=== PATIENT | male | born 1975 | race Caucasian/White ===

== ENCOUNTER 2017-05-10 01:30 | Inpatient (IN) | payer SELFPAY ==
[2017-05-10 01:41] LABS: % IMMATURE GRANULYOCYTES 0.4 % (0.0-1.1); ABSOLUTE IMMATURE GRANULOCYTES 0.05 10^3/uL (0.00-0.10); ADD DIFF? NO; ADD MORPH? NO; ADD SCAN? NO; ATYPICAL LYMPHOCYTE FLAG 0 (0-99); FRAGMENT RBC FLAG 40 (0-99); HEMATOCRIT 42.8 % (40.0-51.0); HEMOGLOBIN 14.3 g/dL (13.7-17.5); LEFT SHIFT FLG 0 (0-99); LIPEMIA HEMOLYSIS FLAG 80 (0-99); MEAN CELL HEMOGLOBIN 26.3 pg (27.9-34.1); MEAN CELL HEMOGLOBIN CONCENTR. 33.4 g/dL (32.4-36.7); MEAN CELL VOLUME 78.7 fL (81.5-99.8); PLATELET CLUMPS FLAG 10 (0-99); PLATELET COUNT 290 10^3/uL (150-400); RED BLOOD CELL COUNT 5.44 10^6/uL (4.40-6.38); RED CELL DISTRIBUTION WIDTH 18.6 % (11.5-15.2)
[2017-05-10] MEDS ORDERED: OLANZapine DISINTEGR 10 MG TAB PO ONE (01:47)
[2017-05-10 02:04] LABS: ALANINE AMINOTRANSFERASE 57 IU/L (21-72); ALBUMIN 4.7 g/dL (3.5-5.0); ALKALINE PHOSPHATASE 136 IU/L (38-126); ASPARTATE AMINOTRANSFERASE 24 IU/L (17-59); BILIRUBIN,TOTAL 0.4 mg/dL (0.1-1.4); CARBON DIOXIDE 22 mEq/l (22-31); CHLORIDE 95 mEq/L (97-110); CREATININE 0.6 mg/dL (0.7-1.3); ETHANOL SERUM < 10 mg/dL (0-10); GLOMERULAR FILTRATION RATE > 60; GLUCOSE 488 mg/dL (70-100); SODIUM 132 mEq/L (134-144); TOTAL PROTEIN 7.7 g/dL (6.3-8.2)
[2017-05-10 02:10] LABS: ANION GAP 17 mEq/L (8-16); POTASSIUM 5.3 mEq/L (3.5-5.2)
[2017-05-10] MEDS ORDERED: ACETAMINOPHEN 325 MG TAB ONE (02:27)
[2017-05-10] MEDS ORDERED: IBUPROFEN 200 MG TAB PO ONE ×2 (02:28→02:31)
[2017-05-10] MEDS ORDERED: ACETAMINOPHEN 325 MG TAB PO ONE (02:30)
[2017-05-10] MEDS ORDERED: IOPAMIDOL (ISOVUE-300) 100 ML BTL ONE (02:46)
[2017-05-10] MEDS ORDERED: oxyCODONE IR 5 MG TAB PO PRN (02:55)
[2017-05-10] MEDS ORDERED: ONDANSETRON DISINTEGRATING 4 MG TAB PO PRN (02:55)
[2017-05-10] MEDS ORDERED: ACETAMINOPHEN 325 MG TAB PO PRN (02:55)
[2017-05-10] MEDS ORDERED: NS 1,000 ML IV ONE (02:55)
[2017-05-10] MEDS ORDERED: ONDANSETRON 4 MG/2 ML VIAL IVP PRN (02:55)
--- NOTE | 2017-05-10 03:26 | PDGENHP ---
History and Physical - Chief Complaint Foreign object in urethra - History of Present Illness 41 yo M w/ schizophrenia and T1DM presents with a foreign object in his urethra. He was previously on monthly injectable depot Abilify. However, he has lost access to medication and has not had this since March 12. Before that he says he used to take Abilify 30 mg qHS. In the setting of this the voices in his head have been growing louder. Today, while on a bus from [place] to [place], the voices were telling him to hurt himself. As a result, he put a pen into his urethra. He says this has happened before, most recently about 6 months ago. He is having significant pain from this but is still passing urine. He has not had any insulin for over 2 weeks. He reports taking insulin glargine 70 units qHS and Novolog 8 units TID. He denies any other symptoms at this time. History Information - Allergies/Home Medication List Allergies/Adverse Reactions: No Known Allergies Allergy (Unverified 05/10/17 01:36) Home Medications: Abilify 05/10/17 [Last Taken Unknown] Lantus 100 UNITS/ML (*) 05/10/17 [Last Taken Unknown] novoLOG 05/10/17 [Last Taken Unknown] I have personally reviewed and updated: family history, medical history - Past Medical History diabetes type 1 Additional medical history: Schizophrenia - Family History Additional family history: Asked, denies - Social History Smoking Status: Current every day smoker Alcohol Use: None Drug Use: None Additional social history: Homeless, just arrived from [place] Review of Systems Review of Systems: ROS: 10pt was reviewed & negative except for what was stated in HPI & below Physical Exam Physical Exam: Temp Pulse Resp BP Pulse Ox 36.6 C 102 H 18 133/102 H 98 05/10/17 01:33 05/10/17 01:33 05/10/17 01:33 05/10/17 01:33 05/10/17 01:33 Constitutional: appears nourished, uncomfortable Eyes: PERRL, EOMI Ears, Nose, Mouth, Throat: moist mucous membranes, no oral mucosal ulcers Cardiovascular: regular rate and rhythym, no murmur, rub, or gallop Respiratory: no respiratory distress, clear to auscultation Gastrointestinal: normoactive bowel sounds, soft, non-tender abdomen Genitourinary: other (Foreign object palpable in proximal urethra) Skin: warm, normal color Musculoskeletal: full muscle strength, no muscle tenderness Neurologic: AAOx3, CN II-XII Intact Psychiatric: interacting appropriately, flat affect Lab Data & Imaging Review 05/10/17 01:25 05/10/17 01:25 WBC 11.93 10^3/uL (3.80-9.50) H 05/10/17 01:25 RBC 5.44 10^6/uL (4.40-6.38) 05/10/17 01:25 Hgb 14.3 g/dL (13.7-17.5) 05/10/17 01:25 Hct 42.8 % (40.0-51.0) 05/10/17 01:25 MCV 78.7 fL (81.5-99.8) L 05/10/17 01:25 MCH 26.3 pg (27.9-34.1) L 05/10/17 01:25 MCHC 33.4 g/dL (32.4-36.7) 05/10/17 01:25 RDW 18.6 % (11.5-15.2) H 05/10/17 01:25 Plt Count 290 10^3/uL (150-400) 05/10/17 01:25 MPV 11.0 fL (8.7-11.7) 05/10/17 01:25 Neut % (Auto) 59.4 % (39.3-74.2) 05/10/17 01:25 Lymph % (Auto) 29.8 % (15.0-45.0) 05/10/17 01:25 Republic % (Auto) 8.2 % (4.5-13.0) 05/10/17 01:25 Eos % (Auto) 1.6 % (0.6-7.6) 05/10/17 01:25 Baso % (Auto) 0.6 % (0.3-1.7) 05/10/17 01:25 Nucleat RBC Rel Count 0.0 % (0.0-0.2) 05/10/17 01:25 Absolute Neuts (auto) 7.08 10^3/uL (1.70-6.50) H 05/10/17 01:25 Absolute Lymphs (auto) 3.56 10^3/uL (1.00-3.00) H 05/10/17 01:25 Absolute Monos (auto) 0.98 10^3/uL (0.30-0.80) H 05/10/17 01:25 Absolute Eos (auto) 0.19 10^3/uL (0.03-0.40) 05/10/17 01:25 Absolute Basos (auto) 0.07 10^3/uL (0.02-0.10) 05/10/17 01:25 Absolute Nucleated RBC 0.00 10^3/uL (0-0.01) 05/10/17 01:25 Immature Gran % 0.4 % (0.0-1.1) 05/10/17 01:25 Immature Gran # 0.05 10^3/uL (0.00-0.10) 05/10/17 01:25 Sodium 132 mEq/L (134-144) L 05/10/17 01:25 Potassium 5.3 mEq/L (3.5-5.2) H 05/10/17 01:25 Chloride 95 mEq/L (97-110) L 05/10/17 01:25 Carbon Dioxide 22 mEq/l (22-31) 05/10/17 01:25 Anion Gap 17 mEq/L (8-16) H 05/10/17 01:25 BUN 19 mg/dL (7-23) 05/10/17 01:25 Creatinine 0.6 mg/dL (0.7-1.3) L 05/10/17 01:25 Estimated GFR > 60 05/10/17 01:25 Glucose 488 mg/dL (70-100) H 05/10/17 01:25 Calcium 10.0 mg/dL (8.5-10.4) 05/10/17 01:25 Total Bilirubin 0.4 mg/dL (0.1-1.4) 05/10/17 01:25 AST 24 IU/L (17-59) 05/10/17 01:25 ALT 57 IU/L (21-72) 05/10/17 01:25 Alkaline Phosphatase 136 IU/L (38-126) H 05/10/17 01:25 Total Protein 7.7 g/dL (6.3-8.2) 05/10/17 01:25 Albumin 4.7 g/dL (3.5-5.0) 05/10/17 01:25 Urine Opiates Screen NEGATIVE (NEGATIVE) 05/10/17 02:00 Urine Barbiturates NEGATIVE (NEGATIVE) 05/10/17 02:00 Ur Phencyclidine Scrn NEGATIVE (NEGATIVE) 05/10/17 02:00 Ur Amphetamine Screen NEGATIVE (NEGATIVE) 05/10/17 02:00 U Benzodiazepines Scrn NEGATIVE (NEGATIVE) 05/10/17 02:00 Urine Cocaine Screen NEGATIVE (NEGATIVE) 05/10/17 02:00 U Marijuana (THC) Screen NEGATIVE (NEGATIVE) 05/10/17 02:00 Ethyl Alcohol < 10 mg/dL (0-10) 05/10/17 01:25 Imaging Review: Pelvic XR w/ foreign object visible in urethra. CT read pending, but per radiologist foreign object confined to urethra. Assessment & Plan Assessment: 41 yo M w/ schizophrenia and T1DM presents with foreign object in his urethra and hyperglycemia. Plan: 1. Foreign body in urethra - Inserted as a result of psychiatric decompensation. He is still able to pass urine around it. Per radiology, foreign body contained to urethra without clear damage to surrounding structures. - Urology consulted, maintain NPO for likely surgery in the morning 2. Schizophrenia - Decompensated currently as a result of lack of medication. He has been on monthly, injectable depot Abilify. Prior to that he was on Abilify 30 mg PO qHS. - S/p 10 mg olanzapine x1 in ED - Admit to ICU on M1 hold - Will order Abilify 30 mg qHS for now pending psychiatric evaluation 3. T1DM, uncontrolled - Has not had insulin for several weeks. BG>400, AG 17, HCO3 22. Possibly mild DKA, but patient asymptomatic with normal bicarb, so will attempt to treat with NS and resumption of basal/bolus regimen for now. He reports regimen of glargine 70 u qHS + Novolog 8 u TID. - Will order insulin glargine 40 u qHS (first dose now); monitor and increase as indicated - SSI standard regimen - Monitor BMP Diet - NPO Code - Full Ppx - SCDs Dispo - Admit to ICU under M1 hold, observations status
[2017-05-10] MEDS ORDERED: INSULIN GLARGINE 100 UNITS/ML SYRINGE SC SCH ×2 (03:30→13:21)
[2017-05-10] MEDS ORDERED: D50W 25 GM/50 ML VIAL IVP PRN (03:38)
[2017-05-10] MEDS ORDERED: PARAMETERS MISC PRN (03:38)
[2017-05-10] MEDS: HYDROmorphone HCL/NS/PF 0.4 MG/2 ML SYR IVP PRN ×5 (03:57→21:28)
--- NOTE | 2017-05-10 04:27 | EDPHY ---
H & P Stated Complaint: pen up urethra, voices told him to Time Seen by Provider: 05/10/17 01:33 HPI/ROS: HPI The patient presents brought in by ambulance after placing a pen in his urethral meatus just prior to arrival. The patient has a history of schizophrenia, has missed his usual depot injection of antipsychotic, because he is homeless and has recently come to [place] because voices told him to get on a bus about 2 and half weeks ago. He was riding the bus today and then heard voices telling him to do this, thus he put a pen inside of his penis. He has done this multiple times before. He has required urologic procedures and an operation before to retrieve foreign bodies. He reports discomfort, denies any bleeding from the meatus. He is able to void. He has a history of diabetes on insulin, he has not had his insulin in several weeks because of his travel. He says he normally takes Lantus 70 units at night and NovoLog 8 units with meals. He denies any polyuria, polydipsia polyphagia. He says his blood glucose is normally run around 400. He is from in [place] and has been homeless for the last 1 and half years after being incarcerated for the previous 8. He denies any drug use. He was placed on an M1 hold by police. REVIEW OF SYSTEMS Constitutional: No fever, no chills. Eyes: No discharge. ENT: No sore throat. Cardiovascular: No chest pain, no palpitations. Respiratory: No cough, no shortness of breath. Gastrointestinal: No abdominal pain, no vomiting. Genitourinary: No hematuria. Musculoskeletal: No back pain. Skin: No rashes. Neurological: No headache. PMHx: Diabetes on insulin, schizophrenia, multiple abdominal operations, hernia with mesh repair Soc Hx: From [place], denies alcohol or drug use PHYSICAL General Appearance: Alert, no distress Eyes: Pupils equal and round no pallor or injection ENT, Mouth: Mucous membranes moist Respiratory: There are no retractions, lungs are clear to auscultation Cardiovascular: Regular rate and rhythm Gastrointestinal: Abdomen is soft and non-tender, no masses, bowel sounds normal : There is a palpable cord-like structure which begins at the base of his penis Neurological: A&O, moves all extremities Skin: Warm and dry, no rashes Musculoskeletal: Neck is supple non tender Extremities: symmetrical, full range of motion Psychiatric: Patient is oriented X 3, there is no agitation Source: Patient, EMS Exam Limitations: No limitations - Personal History Current Tetanus/Diphtheria Vaccine: Yes - Medical/Surgical History Hx Asthma: No Hx Chronic Respiratory Disease: No Hx Diabetes: Yes Hx Cardiac Disease: No Hx Renal Disease: No Hx Cirrhosis: No Hx Alcoholism: No Hx HIV/AIDS: No Hx Splenectomy or Spleen Trauma: No Other PMH: schizo, DM - Social History Smoking Status: Current every day smoker Constitutional: Initial Vital Signs Temperature (C) 36.6 C 05/10/17 01:33 Heart Rate 102 H 05/10/17 01:33 Respiratory Rate 18 05/10/17 01:33 Blood Pressure 133/102 H 05/10/17 01:33 O2 Sat (%) 98 05/10/17 01:33 O2 Delivery Mode Room Air Allergies/Adverse Reactions: No Known Allergies Allergy (Unverified 05/10/17 01:36) Home Medications: Medication Instructions Recorded Abilify 05/10/17 Lantus 100 UNITS/ML (*) 05/10/17 novoLOG 05/10/17 Medical Decision Making - Diagnostics Imaging Results: X-ray pelvis two views shows likely foreign body in the urethra, interpreted by me, radiology interpretation is pending. CT pelvis with contrast demonstrates foreign body in the bulbous urethra measuring 6 cm x 8 mm, there is no periurethral fluid or hematoma, no free fluid , bladder appears normal, discussed with Dr. Contreras of Radiology Imaging: Discussed imaging studies w/ call center representative Radiologist Differential Diagnosis: This is a 41-year-old male with schizophrenia, diabetes on insulin, homelessness , new to our area who presents after inserting a foreign body into his penis because of auditory hallucinations telling him to do so. This is a recurrent problem for the patient and he has had multiple similar episodes out of state requiring urologic intervention. He is currently hemodynamically stable with the discomfort only. In the emergency department, IV line was established an basic laboratory testing was checked. He had elevated blood glucose with an anion gap of 17 making DKA unlikely. He was given IV fluids and pain medication. X-ray was performed which did demonstrate foreign body, the location was not entirely clear. I consulted with Dr. Tod Gipson of Urology and we discussed the case. He does recommend CT scan of the pelvis for further evaluation. CT scan was performed which did demonstrate foreign body in the bulbous portion of the urethra. I consulted with the hospitalist, Dr. Choi who will admit the patient. We will keep the patient NPO. He will go to the ICU because he is on a mental health hold. - Data Points Laboratory Results: Laboratory Results 05/10/17 01:25 05/10/17 01:25 05/10/17 05/10/17 05/10/17 02:00 01:25 01:25 WBC 11.93 10^3/uL H 10^3/uL (3.80-9.50) RBC 5.44 10^6/uL 10^6/uL (4.40-6.38) Hgb 14.3 g/dL g/dL (13.7-17.5) Hct 42.8 % % (40.0-51.0) MCV 78.7 fL L fL (81.5-99.8) MCH 26.3 pg L pg (27.9-34.1) MCHC 33.4 g/dL g/dL (32.4-36.7) RDW 18.6 % H % (11.5-15.2) Plt Count 290 10^3/uL 10^3/uL (150-400) MPV 11.0 fL fL (8.7-11.7) Neut % (Auto) 59.4 % % (39.3-74.2) Lymph % (Auto) 29.8 % % (15.0-45.0) Leslie % (Auto) 8.2 % % (4.5-13.0) Eos % (Auto) 1.6 % % (0.6-7.6) Baso % (Auto) 0.6 % % (0.3-1.7) Nucleat RBC Rel Count 0.0 % % (0.0-0.2) Absolute Neuts (auto) 7.08 10^3/uL H 10^3/uL (1.70-6.50) Absolute Lymphs (auto) 3.56 10^3/uL H 10^3/uL (1.00-3.00) Absolute Monos (auto) 0.98 10^3/uL H 10^3/uL (0.30-0.80) Absolute Eos (auto) 0.19 10^3/uL 10^3/uL (0.03-0.40) Absolute Basos (auto) 0.07 10^3/uL 10^3/uL (0.02-0.10) Absolute Nucleated RBC 0.00 10^3/uL 10^3/uL (0-0.01) Immature Gran % 0.4 % % (0.0-1.1) Immature Gran # 0.05 10^3/uL 10^3/uL (0.00-0.10) Sodium 132 mEq/L L mEq/L (134-144) Potassium 5.3 mEq/L H mEq/L (3.5-5.2) Chloride 95 mEq/L L mEq/L (97-110) Carbon Dioxide 22 mEq/l mEq/l (22-31) Anion Gap 17 mEq/L H mEq/L (8-16) BUN 19 mg/dL mg/dL (7-23) Creatinine 0.6 mg/dL L mg/dL (0.7-1.3) Estimated GFR > 60 Glucose 488 mg/dL H mg/dL (70-100) Calcium 10.0 mg/dL mg/dL (8.5-10.4) Total Bilirubin 0.4 mg/dL mg/dL (0.1-1.4) AST 24 IU/L IU/L (17-59) ALT 57 IU/L IU/L (21-72) Alkaline Phosphatase 136 IU/L H IU/L (38-126) Total Protein 7.7 g/dL g/dL (6.3-8.2) Albumin 4.7 g/dL g/dL (3.5-5.0) Urine Opiates Screen NEGATIVE (NEGATIVE) Urine Barbiturates NEGATIVE (NEGATIVE) Ur Phencyclidine Scrn NEGATIVE (NEGATIVE) Ur Amphetamine Screen NEGATIVE (NEGATIVE) U Benzodiazepines Scrn NEGATIVE (NEGATIVE) Urine Cocaine Screen NEGATIVE (NEGATIVE) U Marijuana (THC) Screen NEGATIVE (NEGATIVE) Ethyl Alcohol < 10 mg/dL mg/dL (0-10) Medications Given: Hydromorphone/Sodium Chloride (Hydromorphone) 0.2 - 0.4 mg IVP Q4HRS PRN PRN Reason: Pain, Severe Unable to Take PO Stop: 05/20/17 02:54 Last Admin: 05/10/17 03:57 Dose: 0.4 mg Insulin Glargine (Lantus Syringe) 40 units SC HS STAR Stop: 11/06/17 03:29 Last Admin: 05/10/17 04:21 Dose: 40 units Insulin Human Lispro (Humalog Lispro) 0 unit SC TIDMEAL STAR PRN Reason: Protocol Stop: 11/06/17 07:59 Last Admin: 05/10/17 07:23 Dose: Not Given Ondansetron HCl (Zofran Odt) 4 mg PO Q4HRS PRN PRN Reason: Nausea/Vomiting, Use 1st Stop: 11/06/17 02:54 Last Admin: 05/10/17 03:56 Dose: 4 mg Oxycodone HCl (Oxycodone Ir) 5 - 10 mg PO Q3HRS PRN PRN Reason: Pain, Severe Able to Take PO Stop: 05/20/17 02:54 Last Admin: 05/10/17 03:56 Dose: 5 mg Discontinued Medications Acetaminophen (Tylenol) 650 mg PO EDNOW ONE Stop: 05/10/17 02:31 Last Admin: 05/10/17 02:32 Dose: 650 mg Sodium Chloride (Ns) 1,000 mls @ 250 mls/hr IV ONCE ONE Stop: 05/10/17 06:54 Last Admin: 05/10/17 03:58 Dose: 1,000 mls Ibuprofen (Motrin) 800 mg PO EDNOW ONE Stop: 05/10/17 02:32 Last Admin: 05/10/17 02:32 Dose: 800 mg Morphine Sulfate (Morphine) 4 mg IVP EDNOW ONE Stop: 05/10/17 02:32 Last Admin: 05/10/17 02:33 Dose: 4 mg Olanzapine (Zyprexa Zydis) 10 mg PO EDNOW ONE Stop: 05/10/17 01:48 Last Admin: 05/10/17 02:05 Dose: Not Given Departure - Departure Disposition: [facility] Clinical Impression: Acute psychosis Urethral foreign body Qualifiers: Encounter type: initial encounter Qualified Code(s): T19.0XXA - Foreign body in urethra, initial encounter Schizophrenia Qualifiers: Schizophrenia type: unspecified Qualified Code(s): F20.9 - Schizophrenia, unspecified Diabetes mellitus with hyperglycemia Qualifiers: Diabetes mellitus type: type 1 Qualified Code(s): E10.65 - Type 1 diabetes mellitus with hyperglycemia Condition: Fair
[2017-05-10] MEDS: INSULIN LISPRO 100 UNIT/ML SC SCH ×4 (07:23→17:41)
--- NOTE | 2017-05-10 11:25 | ASMTCMCOM ---
CM Note CM Note Notes: Patient admitted after sticking a pen in his urethra. Per chart, patient has IDDM and has been without Insulin for some time. He also has schizophrenia, also not recently managed with medications. Patient tells me that "the voices" told him to get on a bus and travel from [place] to [place]. He has never been here before. He has been living on the streets in [place] for the past few weeks and on the streets in [place] before that. He says he has not spoken to his family since he was 15 and says there is no one he wants me (or him) to call regarding his hospitalization. He says that when he is medicated, the voices are inaudible. When I ask him how he usually obtains his medications, he says "through some clinic or the hospital." He says he has no money, no camping gear, and no plan as to what he will do after hospitalization. "Back to the streets," he says. Plan is for patient to go to OR tomorrow AM. He's currently on an M1 hold and will require TLC evaluation when medically stable. Ideally, he will be able to transfer to [facility] inpatient psychiatric unit then. CM will follow. Date Signed: 05/10/2017 11:25 AM Electronically Signed By:Mae Charles RN
--- NOTE | 2017-05-10 13:24 | HOSPPROG ---
Hospitalist Progress Note Assessment/Plan: #Foreign body in urethra: evaluated by urology. Plan for cystoscomy tomorrow. Urinating #Schizophrenia: off Abilify x 3 weeks, bc could not afford. Restart. On M1 hold. No SI/HI now #Diabetes: glargine and SSI #DVT ppx: low-risk #Disp: warrants inpt procedure with uncontrolled schizo and requires urologic procedures Subjective: No SI/HI Objective: Vital Signs Temp Pulse Resp BP Pulse Ox 36.5 C 84 12 143/83 H 95 05/10/17 11:45 05/10/17 11:45 05/10/17 11:45 05/10/17 11:45 05/10/17 11:45 05/09/17 05/10/17 05/11/17 05:59 05:59 05:59 Intake Total 1000 Output Total 300 Balance 1000 -300 - Physical Exam Constitutional: no apparent distress Eyes: PERRL Ears, Nose, Mouth, Throat: moist mucous membranes Cardiovascular: regular rate and rhythym Respiratory: no respiratory distress Gastrointestinal: normoactive bowel sounds Genitourinary: no bladder fullness Skin: warm Musculoskeletal: full muscle strength Neurologic: AAOx3 Psychiatric: depressed ICD10 Worksheet Patient Problems: Problems Problem Status Onset Acute psychosis Acute Urethral foreign body Acute Schizophrenia Acute Diabetes mellitus with hyperglycemia Acute
[2017-05-10] MEDS ORDERED: NS 1,000 ML IV SCH (15:15)
[2017-05-10 15:18] LABS: HEMOGLOBIN A1C 12.8 % (4.0-6.0)
[2017-05-10 15:35] VITALS: RESP 16
[2017-05-10 15:52] LABS: ANION GAP 11 mEq/L (8-16); CALCIUM 9.1 mg/dL (8.5-10.4); CARBON DIOXIDE 24 mEq/l (22-31); CHLORIDE 103 mEq/L (97-110); CREATININE 0.5 mg/dL (0.7-1.3); GLOMERULAR FILTRATION RATE > 60; GLUCOSE 156 mg/dL (70-100); POTASSIUM 4.8 mEq/L (3.5-5.2); SODIUM 138 mEq/L (134-144)
--- NOTE | 2017-05-10 16:43 | SOAPPROG ---
SOAP Progress Note Assessment/Plan: Assessment: Anterior urethral foreign body - unable to remove at bedside. Pt. currently voiding sufficiently. Plan: Intraoperative cystoscopy & FB removal tomorrow in OR (time still TBD). Objective: Vital Signs Temp Pulse Resp BP Pulse Ox 36.7 C 83 16 111/66 93 05/10/17 15:34 05/10/17 15:34 05/10/17 15:34 05/10/17 15:34 05/10/17 15:34 Laboratory Results 05/10/17 15:25 05/09/17 05/10/17 05/11/17 05:59 05:59 05:59 Intake Total 1000 Output Total 300 Balance 1000 -300 ICD10 Worksheet Patient Problems: Problems Problem Status Onset Acute psychosis Acute Diabetes mellitus with hyperglycemia Acute Schizophrenia Acute Urethral foreign body Acute
[2017-05-10] MEDS: INSULIN GLARGINE 100 UNITS/ML SYRINGE SC SCH (21:09)
[2017-05-10] MEDS: ARIPiprazole 10 MG TAB PO SCH (21:28)
[2017-05-11] MEDS: HYDROmorphone HCL/NS/PF 0.4 MG/2 ML SYR IVP PRN ×4 (02:22→19:19)
[2017-05-11] MEDS: INSULIN LISPRO 100 UNIT/ML SC SCH ×4 (09:05→19:04)
--- NOTE | 2017-05-11 09:37 | HOSPPROG ---
Hospitalist Progress Note Assessment/Plan: #Foreign body in urethra: evaluated by urology. Plan for cystoscopy today #Schizophrenia: off Abilify x 3 weeks, bc could not afford. Restart. On M1 hold. No SI/HI now. Will need mental health eval once medically clear #Diabetes: glargine and SSI. Reduced dose with NPO (normally takes 70 units) #DVT ppx: low-risk #Disp: warrants inpt procedure with uncontrolled schizo and requires urologic procedures Subjective: mild pain in penis. Urinating Objective: Vital Signs Temp Pulse Resp BP Pulse Ox 36.3 C 69 16 118/71 91 L 05/11/17 07:32 05/11/17 07:32 05/11/17 07:32 05/11/17 07:32 05/11/17 07:32 Laboratory Results 05/10/17 15:25 05/10/17 05/11/17 05/12/17 05:59 05:59 05:59 Intake Total 1000 1553 Output Total 300 Balance 1000 1253 ICD10 Worksheet Patient Problems: Problems Problem Status Onset Acute psychosis Acute Diabetes mellitus with hyperglycemia Acute Schizophrenia Acute Urethral foreign body Acute
--- NOTE | 2017-05-11 09:48 | SOAPPROG ---
SOAP Progress Note Assessment/Plan: Assessment: Anterior urethral foreign body - unable to remove at bedside. Pt. currently voiding sufficiently. Plan: Intraoperative cystoscopy & FB removal scheduled for OR late this afternoon. Continue NPO until then. Objective: Vital Signs Temp Pulse Resp BP Pulse Ox 36.3 C 69 16 118/71 91 L 05/11/17 07:32 05/11/17 07:32 05/11/17 07:32 05/11/17 07:32 05/11/17 07:32 Laboratory Results 05/10/17 15:25 05/10/17 05/11/17 05/12/17 05:59 05:59 05:59 Intake Total 1000 1553 Output Total 300 Balance 1000 1253 ICD10 Worksheet Patient Problems: Problems Problem Status Onset Acute psychosis Acute Diabetes mellitus with hyperglycemia Acute Schizophrenia Acute Urethral foreign body Acute
--- NOTE | 2017-05-11 15:47 | PDIAF ---
- Diagnosis Diagnosis: Schizophrenia, DM 1 Code Status: Full Code - Medication Management Discharge Medications: Medications to Continue on Transfer ARIPIPRAZOLE [Abilify 30mg] 30 mg PO HS 05/10/17 [Last Taken 3 Weeks Ago ~] Insulin Aspart [novoLOG] 2 - 10 unit SC TIDMEAL PRN #0 05/11/17 [Last Taken 3 Weeks Ago ~04/19/17] Insulin Glargine [Lantus 100 UNITS/ML (*)] 50 units SC HS #0 05/11/17 [Last Taken 3 Weeks Ago ~04/19/17] Discharge Medications: Refer to the Discharge Home Medication list for PRN reason. - Orders Services needed: Registered Nurse Diet Recommendation: ADA 2200 consistent carb Diet Texture: Regular Texture Diet - Labs/Radiology BMP Date: 05/12/17 - Follow Up Care Current Providers and Referrals: NONE *PRIMARY CARE P,. [Primary Care Provider] - As per Instructions
--- NOTE | 2017-05-11 15:50 | ASMTCMCOM ---
CM Note CM Note Notes: TLC was notified patient is medically clear for psych evaluation. CM will follow. Date Signed: 05/11/2017 03:49 PM Electronically Signed By:Mary Whalen LCSW
[2017-05-11] MEDS ORDERED: levOFLOXACIN 500 MG/DEXTROSE 100 ML IV ONE (17:00)
[2017-05-11 19:41] VITALS: BP 137/85; PULSE 78; TEMP 98.1; O2SAT 97
--- NOTE | 2017-05-11 20:48 | GDS ---
[f rep st] DISCHARGE SUMMARY DISCHARGE DIAGNOSES: 1. Schizophrenia, uncontrolled. 2. Type 1 diabetes. 3. Urethral foreign body. HISTORY OF PRESENT ILLNESS: A 41-year-old male with schizophrenia and type 1 diabetes, who presented with a foreign body in his urethra. He had previously been on injectable Depo Abilify but lost access to medication and has not had this since March 12. Prior to that, he was taking Abilify 30 mg at bedtime. [place] was on [place] and voices were telling him to hurt himself. As a result, he put a pen into his urethra and this has happened before, most recently 6 months ago. At admission, he was having significant pain but was still passing urine. He has not been on insulin for 2 weeks, and reports taking 70 units of glargine and NovoLog 8 three times daily. Denies nausea, vomiting, fevers, chills, or sweats. HOSPITAL COURSE BY PROBLEM: 1. Foreign body in urethra: Was still able to pass urine. He was evaluated by Urology and planned for cystoscopy. However, patient did pass the pen on his own. So, no intervention warranted. 2. Uncontrolled schizophrenia: Has been off his medications for several weeks. He was previously on injectable Abilify, previously on 30 mg at bedtime before that. At this time, he is medically cleared and would benefit from evaluation by [facility] and Mental Health. He has been on M1 hold here. 3. Uncontrolled type 1 diabetes: Off insulin for several weeks. Had an anion gap on admission. This closed with treatment. Sugars have been controlled on 40 units during this stay. We will increase this to 50 and may need up titration. DISPOSITION: The patient is medically clear, stable for discharge to Behavioral Health. MEDICATIONS: Lantus 50 units subcu at bedtime (previously on 70 units and of may need up titration) aspart insulin sliding scale, Abilify 30 at bedtime. FOLLOWUP: His psychiatrist. /[id number]/MODL MTDD
[2017-05-11] MEDS: ARIPiprazole 10 MG TAB PO SCH (21:08)
[2017-05-11] MEDS: INSULIN GLARGINE 100 UNITS/ML SYRINGE SC SCH (21:09)
--- NOTE | 2017-05-11 21:11 | PDMN ---
Medical Necessity Medical necessity: Pt meets INPT criteria per MD as of 05/11/17 and [facility] (est. LOS >2 MN for ongoing eval/mgmt. of uncontrolled schizophrenia, uncontrolled type 1 diabetes, hx FB in urethra per MD).
== END 2017-05-11 23:57 | DRG 700 ==
LOC: F2N 03:33 → OBSVTOIN 05-11 15:20
PROVIDERS: ADMIT Student in an Organized Health Care Education/Training Program; ATTEND Student in an Organized Health Care Education/Training Program
DX: T19.0XXA Foreign body in urethra, initial encounter (principal); F20.9 Schizophrenia, unspecified; E10.65 Type 1 diabetes mellitus with hyperglycemia; X83.8XXA Intentional self-harm by other specified means, initial encounter; T38.3X6A Underdosing of insulin and oral hypoglycemic [antidiabetic] drugs, initial encounter; T43.596A Underdosing of other antipsychotics and neuroleptics, initial encounter; Z59.0 Homelessness; Z72.0 Tobacco use
CPT/HCPCS: 80305; 96374; G0378; G0480; J1170; J1815; J1956; Q9967

== ENCOUNTER 2017-05-12 00:13 | Inpatient (IN) | payer SELFPAY ==
[2017-05-12 01:04] VITALS: RESP 16; TEMP 97.1
[2017-05-12] MEDS ORDERED: D50W 25 GM/50 ML SYR IVP PRN (01:08)
[2017-05-12] MEDS ORDERED: MAGNESIUM HYDROXIDE 30 ML UDCUP PO PRN (01:11)
[2017-05-12] MEDS ORDERED: LORazepam 0.5 MG TAB PO PRN (01:11)
[2017-05-12] MEDS ORDERED: ACETAMINOPHEN 325 MG TAB PO PRN (01:11)
[2017-05-12] MEDS ORDERED: MAG HYDROX/AL HYDROX/SIMETH 30 ML UDCUP PO PRN (01:11)
[2017-05-12] MEDS ORDERED: ARIPiprazole 10 MG TAB PO PRN (01:12)
[2017-05-12] MEDS ORDERED: OLANZapine 5 MG TAB PO PRN (01:12)
[2017-05-12] MEDS ORDERED: INSULIN LISPRO 100 UNIT/ML SC SCH (08:00)
[2017-05-12] MEDS ORDERED: ARIPiprazole 5 MG TAB PO SCH (11:00)
[2017-05-12] MEDS ORDERED: CEPHALEXIN 500 MG CAP PO SCH (11:00)
[2017-05-12] MEDS: INSULIN LISPRO 100 UNIT/ML SC SCH ×2 (12:12→17:24)
[2017-05-12] MEDS: NICOTINE POLACRILEX 2 MG GUM B PRN ×5 (12:18→20:56)
--- NOTE | 2017-05-12 13:44 | SOAPPROG ---
SOAP Progress Note Assessment/Plan: Assessment: Diabetes mellitus type 2. Will increase Lantus to 60 U at bedtime and will initiate NovoLog 4 U before meals. Continue to monitor. It is likely that his reported outpatient regimen will be appropriate but will exercise caution to avoid hypoglycemia. Status post urethral foreign body insertion and spontaneous passing. Unclear indication for antibiotics. No dysuria or other symptoms of UTI. No urinalysis done in the hospital. He recent levofloxacin IV yesterday. Will DC cephalexin. Observed for symptoms. 05/12/17 13:41 Subjective: Follow-up on management of diabetes mellitus type 1 and on urethral foreign body. This patient was hospitalized 05/10/2018 has self inserted a foreign body in his urethra. He has diabetes mellitus type 1 and had not been taking insulin for approximately 3 weeks. He reports that he was taking insulin glargine 70 U at bedtime and NovoLog 8 U three times daily before meals. He was seen by Urology and scheduled for cystoscopy however he was able to pass the farm body without intervention. He denies pain, dysuria, urinary frequency, fevers or chills. Objective: Vital Signs Temp Pulse Resp BP Pulse Ox 36.2 C 77 16 126/72 H 96 05/12/17 01:03 05/12/17 01:03 05/12/17 01:03 05/12/17 01:03 05/12/17 01:03 Physical Exam - Physical Exam General Appearance: WD/WN, alert, no apparent distress Respiratory: normal breath sounds, No crackles, No rhonchi, No wheezing Cardiac/Chest: regular rate, rhythm, No edema Skin: normal color, warm/dry Neuro/Psych: no motor/sensory deficits, alert, normal mood/affect, oriented x 3 ICD10 Worksheet Patient Problems: Problems Problem Status Onset Acute psychosis Acute Diabetes mellitus with hyperglycemia Acute Schizophrenia Acute Urethral foreign body Acute
--- NOTE | 2017-05-12 18:55 | BAPA ---
[f rep st] ADMISSION PSYCHIATRIC ASSESSMENT DATE OF SERVICE: 05/12/2017 CHIEF COMPLAINT: "I put a foreign object in my urethra. I have voices that tell me to do something bad. I sometimes do it to sop them." HISTORY OF PRESENT ILLNESS: This is a 41-year-old, man with a 20-year history of mental il lness who recently arrived from [place]. The patient was seen in the ICU and placed on a mental he alth hold. He called [place] [employer] dispatch and informed them that he just stuck a ballpoint pen in his urethra. Patient said that he was tired of being homeless and the voices in his head were getting t o him. Patient also said he has put objects in his urethra in the past. The discharge summary from the [facility] ED was written by Nicolás Choi. He noted that, "The patient is a 41-year-old male with schizophrenia and type 1 diabetes who presented with a foreign body in his urethra. He had previously been on Abilify but lost access to [facility] and has not had this since March. Prior to that, he was taking Abilify 30 mg. He was on a bus from [place] to [place] and voices were telling him to hurt himself. As a result, he put a pin in his urethra. This has happened before, most recently 6 months ago. At admission, he was havi ng significant pain but was still passing urine. He has not been on insulin for 2 weeks. Denies jesica sea, vomiting, fevers, chills or sweats." According to Dr. Choi, the hospital course by problem was as follows: 1. "Foreign body in urethra. Was still able to pass urine. He was evaluated by Urology and planned for a cystoscopy. However, the patient did pass the pen on his own, so no intervention warranted.". 2. "Uncontrolled schizophrenia. He has been off his medications for several weeks. At this time, h e is medically cleared and would benefit from evaluation by [facility].". 3. "Uncontrolled type 1 diabetes. Off insulin for several weeks. He had an anion gap on admission. This closed with treatment. Sugars been controlled on 40 units during this stay. We will increase this to 50 units and may need to up titration.". The patient's information that he provided to the [facility] professional caster and to the ED physician are not entir harriett accurate, based upon what he told this MD who met with him on Monday05/12/2017 on the inpatient Behavioral Health Services Unit. He told [facility] professional caster that he had been hospitalized many times, ehsan t he had 3 previous suicide attempts, all by taking insulin. According to the [facility] note, "During one of these times, he woke up and called for help. Following the other 2 attempts, someone else called 911. The most recent 2 attempts were during the last 3 months while he lived in [place]. He has been hospitalized 3 times. The hospitalizations have lasted 5- 7 days. When this MD met with the patient, he was bright, cheerful. He showed no apparent signs of distress or sadness. He was not reporting having any auditory or visual hallucinations. He denied any sympto ms of psychosis. Based upon observation, there was no evidence of psychosis, mei, or depression. The patient denied having any thoughts, plans, or intents to harm himself or to kill himself or to hu rt anyone else. He said "I am not going to lie to you. I only do this (put foreign objects in his urethra) so I am n ot homeless." The patient says, "I know if I put things in my penis I will get at least 2 days in [facility]." Patient says that he has placed foreign bodies in his urethra "tons of times" in order to get admitted to the hospital. The patient denies any symptoms of psychosis. Says that he was not having command auditory hallucina tions. He only told the ED staff that so that "I could get admitted." He also denies any prior hist ory of suicide attempts. He says that he has never done anything other than put foreign bodies in hi s urethra to intentionally harm himself and he has never overdosed on his insulin. PAST PSYCHIATRIC HISTORY: The patient says that he left [place], [place], about 3 weeks ago, a nd he has been in [place] since then. What he failed to disclose to the emergency room physician or staff and did not disclose to the [facility] professional caster was that he had recently been hospitalized at the [facility] on and was discharged on Monday05/08/2017 with a prescriptio n for Abilify and Lantus insulin. He said he did not fill either prescription because he did not hav e the money and he did not go to the free clinic to get treatment. He did not follow up with the [facility] that was scheduled for him and instead he took the bus and came to [place]. Patient s tates that he did the same thing to get admitted to [facility] that he did when he went to the [facility] ED which was put foreign body in his urethra. The patient states that he does have a prior psychiatric history. He said he was first diagnosed wit h attention deficit hyperactivity disorder when he was 5 years old and that he took Ritalin for an un specified period of time. He said then when he was 15 or 16 years old he says that he started having auditory hallucinations. He says that he was diagnosed with bipolar disorder when he was a teenager and that he was started on Depakote when he was about 17 years old. He took the Depakote for 2 years and then he said that they later changed his diagnosis from bipolar disorder to schizophrenia and he was tried on numerous antipsychotic medications. He said Risperdal was one of them. He said he cannot remember the names of the other medications that he tried, but he says that Abilify has worked the best at stopping the auditory hallucinations. However, when the MD questioned him as to why he had been off his medications, he said that, "It doesn't really make a di fference whether I take the medications or not." MD was confused because the patient said that Abili fy helped stop the voices. He said, "Well, sometimes I have the voices and sometimes I don't and it doesn't really seem to matter if I take the medications or not." Patient also says that the voices "do not bother me." When MD questioned this, because the patient to ld the ED staff that he was having command auditory hallucinations to put objects in his urethra, he said "that's not really true. The voices don't tell me to hurt myself. I only do that so that I can get admitted to the hospital." He says the voices are "not that bad. Nothing that I can't handle." The patient denies symptoms of mei now or in the past. He also denies depression. He denies fee ling sad, helpless, hopeless. He denies feeling worthless or feeling that life is not worth living. He denies having any thoughts of ending his life. He denies any intent or plan to hurt himself or t o hurt anyone else. The patient does admit that when he was last taking Abilify, it was when he was in [place]. He rosy d he got his medications from the [facility]. He could not afford them and that was the reason that he stopped when he left [place]. He had previously been on 30 mg. He did not say anything about being on an injectable form of Abilify. The ED physician noted that he had been on Abilify Maintena in the past, but given the fact that the patient is an unreliable historian we will need further rufino ateral information to verify this. The patient states he also has not been taking his insulin becaus e he could not afford it. He said that he used to go to the free clinic in [place] and get his i nsulin on a daily basis, but says that since he has left [place] he does not get it. ALLERGIES: Patient says he has no known drug allergies. CURRENT MEDICATIONS: The patient is currently not taking any medications. As previously mentioned in the past, he has been on Abilify 30 mg p.o. daily. He told the ED physici an he had been on Abilify Maintena, but denies that today. He also says that he had been on Lantus 7 0 mg daily in the past. He was given 40 units in the ED. He also says that he has been on antihyper tensive medications but has not taken them in a long time. PAST MEDICAL HISTORY: Patient is a type 1 diabetic but noncompliant with medications. He also says that he has a history of hypertension but does not take medications. SURGICAL HISTORY: He said that he had a hernia repair in July of 2016. SOCIAL HISTORY: The patient states that he was born and raised in [place], that he has family that still live there, but says that he has not had any contact with them since he was 15 years old. He was removed from his parents custody when he was 15 and placed in a foster home. He says, "I don't w ant to talk about it." The patient was homeless in [place], [place], up until 3 weeks ago when he left and took a bus and came to [place] for no apparent reason. He could not explain why he dec ided to come to [place]. He said that he does not like staying in shelters and he has just been dylan ing on the street, although he said he did stay in shelters when he was in [place]. SUBSTANCE USE HISTORY: The patient says that he smokes marijuana "once in a while." He denies any a lcohol use. He denies use of any other illicit substances. His urine drug screen was negative for a ll drugs. FAMILY HISTORY: The patient says does not stay in touch with his family. He is not aware of any fam marielle history of mental illness or substance use disorders. ADMISSION LABS: The patient's labs were done in the ED. His white cell count was 11.93, which was e levated. His hemoglobin was 14.3, hematocrit 42.8, platelet count was 290. His sodium level was 138 , potassium was 4.8, chloride 103, anion gap was 11, BUN was 11, creatinine was 0.5, glucose was 156, calcium was 9.1, AST was 24, ALT was 57. Alkaline phosphatase was 136, total protein 7.7, albumin 4 .7. Urine tox screen was negative for all drugs of abuse. MENTAL STATUS EXAMINATION: This is a slightly overweight, healthy-appearing male. Interac naomi appropriately with the examiner. His affect was bright and cheerful. His mood he said was "good ." His thought processes were linear and goal directed. His thought content reveals no evidence of psychosis or mei. He denied any thoughts, plans, or intents to hurt himself. He currently denied any active thoughts of suicide. His intellect appears to be average, based upon fund [employer] an d vocabulary. His insight and judgment both appear to be poor, based on the fact that he put a pin u p his urethra in order to get admitted to the hospital. IMPRESSION: 1. Factitious disorder. 2. Malingering. 3. History of schizoaffective disorder. There are no signs or symptoms or evidence of this at the c urrent time. 4. Cannabis use disorder. Moderate. 5. Should be psychosocial stressors include homeless. Recently arrived in [place] from [place] . Recently discharged from the [facility] [place]. Noncompliant with medications. He is an i nsulin-dependent diabetic. Does not take his insulin. Also, lack of social support and lack of harpreet ncial means. Estrangement from his biological family. PLAN: 1. Admit patient to behavioral health services inpatient unit on an M1 hold. 2. Monitor closely for safety and on suicide precautions. 3. We will restart the patient on Abilify which, according to the patient's report, he was getting b etween 05/05 and 05/08. He was getting 30 mg of Abilify daily while he was at the [facility] [place], but has not taken the medicine since his discharge. So, we will put him back on 30 mg p.o. C onsider putting him on an injectable Maintena, but that medicine is quite expensive and not always on formulary with the [facility], so we will want to decide where he is going to be getting his followup care and since the patient was recently discharged and did not comply with his aftercare plan, this MD has strong reservations about whether or not the patient will actually follow through on our discharge recommendations that we will need to be discussed with him in detail prior to discharge. He is getting Lantus 60 units at h.s. and 8 units 3 times a day with meals. 4. Engage patient in individual, group, and milieu therapies. 5. Patient states that his main goal during this hospital stay is to, "get connected with housing. " He has spoken with the healthcare associate who has explained to him the system in [facility] for ac cessing homeless services. The patient says that he is willing to go to a [facility] [place] if he can get connected with the homeless senior living. 6. Estimated length of stay is 2-3 days. Anticipate discharge on Monday, given the fact that the pa shilpa is malingering, although he does have a psychiatric history but the patient remains an unreliab le historian. /[id number]/MODL
[2017-05-12] MEDS: ARIPiprazole 5 MG TAB PO SCH (20:52)
[2017-05-12] MEDS ORDERED: INSULIN GLARGINE 100 UNITS/ML SYRINGE SC SCH ×3 (21:00)
[2017-05-12] MEDS: INSULIN GLARGINE 100 UNITS/ML SYRINGE SC SCH (21:29)
[2017-05-13] MEDS: INSULIN LISPRO 100 UNIT/ML SC SCH ×3 (08:30→17:25)
[2017-05-13] MEDS: NICOTINE POLACRILEX 2 MG GUM B PRN ×4 (13:09→20:29)
--- NOTE | 2017-05-13 14:19 | SOAPPROG ---
SOAP Progress Note Assessment/Plan: Assessment: 41 yo homeless man who put pen into his urethra in order to get admitted to hospital b/c "I don't want to be homeless." He says he has done this "tons of time" in past to gain hospital admission. Plan: 05/13/17 14:16 1. No complaints, tolerating Abilify, no SE's. 2. Denies any psychotic sxs, no depression, no SI/HI. 3. [facility]. Subjective: Met with patient, reviewed chart and d/w staff. Patient presents pleasant, cheerful, cooperative. He denies any psychotic sxs, no depression, no manic sxs. He denies any thoughts, plan or intent to hurt himself or anyone else. He repeats what he told yesterday, that he just wants to go to one of the local churches and have a "place to sleep at night." Objective: Vital Signs Temp Pulse Resp BP Pulse Ox 36.2 C 77 16 126/72 H 96 05/12/17 01:03 05/12/17 01:03 05/12/17 01:03 05/12/17 01:03 05/12/17 01:03 MSE: Affect: Euthymic Mood: "Fine" TP: Linear, goal-directed TC: No SI/HI, no AH/VH Insight/Judgment: Fair - Time Spent With Patient Time Spent With Patient: 20" - Pending Discharge Pending Discharge Within 24 Hours: No Pending Discharge Within 48 Hours: No ICD10 Worksheet Patient Problems: Problems Problem Status Onset Malingering Acute Acute psychosis Acute Diabetes mellitus with hyperglycemia Acute Schizophrenia Acute Urethral foreign body Acute - ICD10 Problem Qualifiers (1) Malingering
[2017-05-13] MEDS ORDERED: TUBERCULIN (PPD) 5 TU/0.1 ML SYRINGE ID ONE (14:32)
[2017-05-13] MEDS: INSULIN GLARGINE 100 UNITS/ML SYRINGE SC SCH (20:51)
[2017-05-13] MEDS: ARIPiprazole 5 MG TAB PO SCH (20:52)
[2017-05-14] MEDS: INSULIN LISPRO 100 UNIT/ML SC SCH ×3 (08:32→17:18)
[2017-05-14] MEDS: NICOTINE POLACRILEX 2 MG GUM B PRN ×6 (10:53→20:51)
[2017-05-14 12:32] VITALS: BP 135/86; PULSE 98; O2SAT 93
--- NOTE | 2017-05-14 13:30 | SOAPPROG ---
SOAP Progress Note Assessment/Plan: Assessment: 41 yo homeless man who put pen into his urethra in order to get admitted to hospital b/c "I don't want to be homeless." He says he has done this "tons of time" in past to gain hospital admission. Plan: 05/13/17 14:16 1. No complaints, tolerating Abilify, no SE's. 2. Denies any psychotic sxs, no depression, no SI/HI. 3. [facility] 05/14/17 13:27 1. BS range from 204-310 2. Patient off SP1 3. No complaints about meds 4. D/C to [facility] Subjective: Met with patient, reviewed chart and d/w staff. Patient says he's "the same" as yesterday. He was taken off suicide precautions and has privilege to listen to radio in his room. He says this makes him "feel better." He denies depression, psychotic sxs, and denies any thoughts, plan or intent to harm himself or anyone else. Objective: Vital Signs Temp Pulse Resp BP Pulse Ox 36.2 C 98 16 135/86 H 93 05/12/17 01:03 05/14/17 12:32 05/14/17 12:32 05/14/17 12:32 05/14/17 12:32 MSE: Affect: Euthymic Mood: "Good" TP: Linear TC: Denies any SI/HI, no AH/VH Insight/Judgment: Fair - Time Spent With Patient Time Spent With Patient: 15" - Pending Discharge Pending Discharge Within 24 Hours: No Pending Discharge Within 48 Hours: No ICD10 Worksheet Patient Problems: Problems Problem Status Onset Malingering Acute Acute psychosis Acute Diabetes mellitus with hyperglycemia Acute Schizophrenia Acute Urethral foreign body Acute - ICD10 Problem Qualifiers (1) Malingering
[2017-05-14] MEDS: ARIPiprazole 5 MG TAB PO SCH (20:49)
[2017-05-14] MEDS: INSULIN GLARGINE 100 UNITS/ML SYRINGE SC SCH (20:51)
[2017-05-15] MEDS: INSULIN LISPRO 100 UNIT/ML SC SCH ×2 (08:34→12:20)
[2017-05-15] MEDS: NICOTINE POLACRILEX 2 MG GUM B PRN (08:36)
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
[2017-05-15] MEDS ORDERED: ARIPiprazole 10 MG TAB PO SCH (21:00)
== END 2017-05-15 12:15 | disposition home or self-care (01) | DRG 885 ==
LOC: BBEH 00:13
PROVIDERS: ADMIT Psychiatry & Neurology Behavioral Neurology & Neuropsychiatry; ATTEND Psychiatry & Neurology Behavioral Neurology & Neuropsychiatry
DX: F20.9 Schizophrenia, unspecified (principal); F68.11 Factitious disorder imposed on self, with predominantly psychological signs and symptoms; T19.0XXA Foreign body in urethra, initial encounter; Z59.0 Homelessness; E10.9 Type 1 diabetes mellitus without complications; F12.90 Cannabis use, unspecified, uncomplicated; Z91.14 Patient's other noncompliance with medication regimen
CPT/HCPCS: J1815

== ENCOUNTER 2017-12-08 00:31 | Emergency (ER) | payer MEDICAID ==
[2017-12-08 01:14] LABS: PLATELET COUNT 203 10^3/uL (150-400)
--- NOTE | 2017-12-08 01:30 | EDPHY ---
H & P Stated Complaint: SI-FB in penis Time Seen by Provider: 12/08/17 00:37 HPI/ROS: Chief Complaint: Acute psychosis, suicidal, foreign body penis HPI: 42-year-old male with a history of schizophrenia and type 1 diabetes. He has been off his medications for a couple of weeks. He has been increasingly suicidal psychotic this morning and purposely placed approximately 5 in stick into is urethra and push it is far as he could. He has a history of doing this multiple times in the past and states that he has had to have it removed about 40 times. He says he has recently seen in the hospital in [place] and was given IV fluids and insulin and discharged. He is complaining of pain in his urethra. Denies fevers or chills. No nausea or vomiting. No head injuries or falls. ROS: 10 point Review of Systems is negative except as noted in the HPI. PMH: Schizophrenia, type 1 diabetes, hypertension, schizophrenia Social History: No smoking, no alcohol, no recreational drug use Family History: non-contributory Physical Exam: Gen: Awake, Alert, No Distress HEENT: Nose: no rhinorrhea Eyes: PERRLA, EOMI Mouth: Moist mucosa Neck: Supple, no JVD Chest: nontender, lungs clear to auscultation Heart: S1, S2 normal, no murmur Abd: Soft, patient has a palpable seroma and his right abdomen which she says is chronic, no guarding Genital: Patient has blood at his urethral meatus. There is a palpable likely intra urethral foreign body at the base of his penis. Back: no CVA tenderness, no midline tenderness Ext: no edema, non-tender Skin: no rash Neuro: CN II-XII intact, Sensation grossly intact, Strength 5/5 in bilateral upper and lower extremities - Personal History Current Tetanus Diphtheria and Acellular Pertussis (TDAP): Yes - Medical/Surgical History Hx Asthma: No Hx Chronic Respiratory Disease: No Hx Diabetes: Yes Hx Cardiac Disease: No Hx Renal Disease: No Hx Cirrhosis: No Hx Alcoholism: No Hx HIV/AIDS: No Hx Splenectomy or Spleen Trauma: No Other PMH: schizo, DM - Social History Smoking Status: Heavy smoker Constitutional: Initial Vital Signs Temperature (C) 36.6 C 12/08/17 00:36 Heart Rate 90 12/08/17 00:36 Respiratory Rate 16 12/08/17 00:36 Blood Pressure 141/104 H 12/08/17 00:36 O2 Sat (%) 96 12/08/17 00:36 O2 Delivery Mode Room Air Allergies/Adverse Reactions: No Known Allergies Allergy (Unverified 12/08/17 00:34) Home Medications: Medication Instructions Recorded Abilify 12/08/17 Lantus 12/08/17 Lisinopril 12/08/17 Pentasa 500 mg 12/08/17 novoLOG 12/08/17 Medical Decision Making - Diagnostics Imaging Results: Pelvis x-ray, unable to adequately visualize or rule out a foreign body in urethra. Imaging: I viewed and interpreted images myself ED Course/Re-evaluation: Laboratory his results noted. Patient has a blood sugar of 617 but his CO2 is 22 so he is not in DKA. I I am unable to visualize a foreign body on his plain x-ray. I have ordered a CT scan of his pelvis. I have ordered a L normal saline and 10 units of insulin subcutaneously. He is passing clear urine here. CT scan of the abdomen pelvis shows a 4.5 cm x 5 mm foreign body in the bulbous of his urethra. Unfortunately we do not have any inpatient beds available. I have discussed with Dr. Stubbs, hospitalist at [facility]. She is accepting the patient in transfer. Patient will remain on his mental health hold. - Data Points Laboratory Results: Laboratory Results 12/08/17 01:00 12/08/17 01:00 12/08/17 12/08/17 12/08/17 01:36 01:02 01:00 WBC RBC Hgb POC Hgb 14.3 gm/dL gm/dL (13.7-17.5) Hct POC Hct 42 % % (40-51) MCV MCH MCHC RDW Plt Count MPV Neut % (Auto) Lymph % (Auto) [place] % (Auto) Eos % (Auto) Baso % (Auto) Nucleat RBC Rel Count Absolute Neuts (auto) Absolute Lymphs (auto) Absolute Monos (auto) Absolute Eos (auto) Absolute Basos (auto) Absolute Nucleated RBC Immature Gran % Immature Gran # Puncture Site NONE GIVEN VBG pH 7.36 (7.31-7.42) VBG HCO3 22 mEQ/L mEQ/L (22-26) VBG Total CO2 23 mEq/L mEq/L (21-27) VBG O2 Saturation 99 % H % (65-75) VBG Base Excess -2.6 mEq/L L mEq/L (-2.5-2.5) Mixed VBG pCO2 40 mmHg mmHg (40-44) Mixed VBG pO2 129 mmHG H mmHG (35-40) POC Sodium 134 mEq/L L mEq/L (135-145) Sodium 136 mEq/L mEq/L (135-145) POC Potassium 4.3 mEq/L mEq/L (3.3-5.0) Potassium 4.6 mEq/L mEq/L (3.3-5.0) POC Chloride 98 mEq/L mEq/L (97-110) Chloride 101 mEq/L mEq/L (97-110) Carbon Dioxide 22 mEq/l mEq/l (22-31) Anion Gap 13 mEq/L mEq/L (8-16) POC BUN 10 mg/dL mg/dL (7-23) BUN 11 mg/dL mg/dL (7-23) Creatinine 0.7 mg/dL mg/dL (0.7-1.3) POC Creatinine 0.7 mg/dL mg/dL (0.7-1.3) Estimated GFR > 60 Glucose 613 mg/dL H* mg/dL (70-100) POC Glucose 659 mg/dL H* mg/dL (70-100) Calcium 9.2 mg/dL mg/dL (8.5-10.4) 12/08/17 01:00 WBC 6.50 10^3/uL 10^3/uL (3.80-9.50) RBC 4.58 10^6/uL 10^6/uL (4.40-6.38) Hgb 13.4 g/dL L g/dL (13.7-17.5) POC Hgb Hct 39.0 % L % (40.0-51.0) POC Hct MCV 85.2 fL fL (81.5-99.8) MCH 29.3 pg pg (27.9-34.1) MCHC 34.4 g/dL g/dL (32.4-36.7) RDW 13.2 % % (11.5-15.2) Plt Count 203 10^3/uL 10^3/uL (150-400) MPV 13.0 fL H fL (8.7-11.7) Neut % (Auto) 62.3 % % (39.3-74.2) Lymph % (Auto) 26.6 % % (15.0-45.0) [place] % (Auto) 7.5 % % (4.5-13.0) Eos % (Auto) 2.8 % % (0.6-7.6) Baso % (Auto) 0.6 % % (0.3-1.7) Nucleat RBC Rel Count 0.0 % % (0.0-0.2) Absolute Neuts (auto) 4.05 10^3/uL 10^3/uL (1.70-6.50) Absolute Lymphs (auto) 1.73 10^3/uL 10^3/uL (1.00-3.00) Absolute Monos (auto) 0.49 10^3/uL 10^3/uL (0.30-0.80) Absolute Eos (auto) 0.18 10^3/uL 10^3/uL (0.03-0.40) Absolute Basos (auto) 0.04 10^3/uL 10^3/uL (0.02-0.10) Absolute Nucleated RBC 0.00 10^3/uL 10^3/uL (0-0.01) Immature Gran % 0.2 % % (0.0-1.1) Immature Gran # 0.01 10^3/uL 10^3/uL (0.00-0.10) Puncture Site VBG pH VBG HCO3 VBG Total CO2 VBG O2 Saturation VBG Base Excess Mixed VBG pCO2 Mixed VBG pO2 POC Sodium Sodium POC Potassium Potassium POC Chloride Chloride Carbon Dioxide Anion Gap POC BUN BUN Creatinine POC Creatinine Estimated GFR Glucose POC Glucose Calcium Medications Given: Discontinued Medications Sodium Chloride (Ns) 1,000 mls @ 0 mls/hr IV ONCE ONE; Wide Open PRN Reason: Protocol Stop: 12/08/17 01:37 Last Admin: 12/08/17 01:50 Dose: 1,000 mls Insulin Human Regular (Humulin R) 10 unit SC EDNOW ONE Stop: 12/08/17 01:37 Last Admin: 12/08/17 01:54 Dose: 10 units Point of Care Test Results: Chemistry 12/08/17 01:02 POC Sodium 134 mEq/L L mEq/L (135-145) POC Potassium 4.3 mEq/L mEq/L (3.3-5.0) POC Chloride 98 mEq/L mEq/L (97-110) POC BUN 10 mg/dL mg/dL (7-23) POC Creatinine 0.7 mg/dL mg/dL (0.7-1.3) POC Glucose 659 mg/dL H* mg/dL (70-100) ISTAT H&H 12/08/17 01:02 POC Hgb 14.3 gm/dL gm/dL (13.7-17.5) POC Hct 42 % % (40-51) Departure - Departure Disposition: Acute Care Hospital Not [facility] Clinical Impression: Suicidal ideation, Acute psychosis, Diabetes mellitus with hyperglycemia, Urethral foreign body, Schizophrenia Condition: Fair Referrals: NONE *PRIMARY CARE P,. [Primary Care Provider] - As per Instructions
[2017-12-08] MEDS ORDERED: INSULIN REGULAR HUMAN 100 UNIT/ML UNIT SC ONE (01:36)
[2017-12-08] MEDS ORDERED: NS 1,000 ML IV ONE (01:36)
[2017-12-08 04:08] VITALS: BP 124/94
== END 2017-12-08 04:28 | disposition short-term general hospital (02) ==
LOC: EDUNIT#
DX: T19.0XXA Foreign body in urethra, initial encounter (principal); F23 Brief psychotic disorder; I10 Essential (primary) hypertension; E10.9 Type 1 diabetes mellitus without complications; F17.200 Nicotine dependence, unspecified, uncomplicated; E86.9 Volume depletion, unspecified; X83.8XXA Intentional self-harm by other specified means, initial encounter; Y99.8 Other external cause status; Y93.89 Activity, other specified
CPT/HCPCS: 82435-PO; 82565-PO; 82947-PO; 82947-QW; 84132-PO; 84295-PO; 84520-PO; 85014-PO; J1815

== ENCOUNTER 2017-12-15 00:19 | Inpatient (IN) | payer MEDICAID ==
[2017-12-15] MEDS ORDERED: D50W 25 GM/50 ML SYR IVP ONE ×3 (00:26→02:06)
[2017-12-15] MEDS ORDERED: NS 1,000 ML IV ONE (00:27)
--- NOTE | 2017-12-15 00:43 | EDPHY ---
H & P Stated Complaint: INSULIN OD Time Seen by Provider: 12/15/17 00:24 HPI/ROS: HPI The patient presents with overdose of his insulin just prior to arrival, brought in by ambulance. The patient has a history of type 1 diabetes as well as schizophrenia. He was outside at the bus stop and at approximately 11:45 p.m., over a period of 5 min, he injected NovoLog 15 syringes, each with 20 units of NovoLog in them into his abdomen. He says he was doing this in an effort to hurt himself though does not feel suicidal. He says that he is off of his psychiatric medications and he feels this is what caused him to act this way because voices are telling him to hurt himself. Once a friend noticed that he had taken all of this insulin he was given 4 cans of Mountain Dew which he drink in rapid succession. Per paramedics, glucose in the field was 516. They have not administered any treatments. The patient says he recently overdose on Lantus as well. He was seen in our emergency department on December 08 after placing a pen into his urethra requiring urologic intervention to remove.. REVIEW OF SYSTEMS Constitutional: No fever, no chills. Eyes: No discharge. ENT: No sore throat. Cardiovascular: No chest pain, no palpitations. Respiratory: No cough, no shortness of breath. Gastrointestinal: No abdominal pain, no vomiting. Genitourinary: No hematuria. Musculoskeletal: No back pain. Skin: No rashes. Neurological: No headache. PMHx: Type 1 diabetes on insulin, schizophrenia Soc Hx: Homeless, denies drug and alcohol use PHYSICAL General Appearance: Alert, no distress Eyes: Pupils equal and round no pallor or injection ENT, Mouth: Mucous membranes moist Respiratory: There are no retractions, lungs are clear to auscultation Cardiovascular: Regular rate and rhythm Gastrointestinal: Abdomen is soft and non-tender, no masses, bowel sounds normal Neurological: A&O, moves all extremities Skin: Warm and dry, no rashes Musculoskeletal: Neck is supple non tender Extremities: symmetrical, full range of motion Psychiatric: Patient is oriented X 3, there is no agitation Source: Patient, EMS Exam Limitations: No limitations - Personal History Current Tetanus Diphtheria and Acellular Pertussis (TDAP): Unsure - Medical/Surgical History Hx Asthma: No Hx Chronic Respiratory Disease: No Hx Diabetes: Yes Hx Cardiac Disease: No Hx Renal Disease: No Hx Cirrhosis: No Hx Alcoholism: No Hx HIV/AIDS: No Hx Splenectomy or Spleen Trauma: No Other PMH: schizo, DM I, HERNIA REPAIR - Social History Smoking Status: Heavy smoker Constitutional: Initial Vital Signs Temperature (C) 36.8 C 12/15/17 00:20 Heart Rate 95 12/15/17 00:20 Respiratory Rate 16 12/15/17 00:20 Blood Pressure 171/110 H 12/15/17 00:20 O2 Sat (%) 96 12/15/17 00:20 O2 Delivery Mode Room Air Allergies/Adverse Reactions: No Known Allergies Allergy (Verified 12/15/17 00:29) Home Medications: Medication Instructions Recorded ARIPiprazole [Abilify 10 mg (*)] 30 mg PO DAILY 12/08/17 Insulin Aspart [novoLOG] 15 unit SC TIDMEAL 12/08/17 Insulin Glargine [Lantus 100 70 units SC HS 12/08/17 UNITS/ML (*)] Lisinopril [Zestril 20 mg (*)] 20 mg PO DAILY 12/08/17 Mesalamine [Pentasa] 2,000 mg PO TIDMEAL 12/08/17 Cephalexin [Keflex (*)] 500 mg PO BID 12/15/17 Medical Decision Making Differential Diagnosis: 42-year-old man with schizophrenia, type 1 diabetes, homelessness, off of his psych medications presents after injecting total of 750 units of NovoLog at 11: 45 p.m. Tonight in active self-harm. He did drink a large glucose load after this. His blood glucose in the field was 516. He is placed on an M1 hold by the police. Labs were checked in the emergency department initial blood glucoses in the 300s. We will check his blood glucose every 1 hr. I consulted with poison control center [facility], case # [id number], recommend feeding him, probably will bottom out, onset 5-15min, peak is 30-90 min, 5 hour duration Off dextrose eating normally for 6 h to be medically clear. 1:20 a.m.- The patient confessed to me that he took a combination of Lantus and NovoLog not just NovoLog. He thinks he used about 9-10 vials of Lantus and 6-7 vials of NovoLog. I have really consulted poison Control who now recommends a 12 hr observation window checking blood glucose is at least every 1 hr up to every 15 min if he is exhibiting any hypoglycemia. Because of this, he will need to be observed overnight, I plan on admitting him to the ICU. I have consulted with the hospitalist information security risk analyst Dr. Moon who will admit the patient. 1:40 a.m.- Patient's blood glucose has gone from 400s to 70. He has eaten a sandwich and drink juice. He is feeling palpitations and a bit lightheaded. I will give him half of an amp of D50. We will recheck his blood sugar in 20 min. Critical Care Time: CRITICAL CARE Critical care time spent by me, Dr. Newton, exclusively with this patient was 30 min minutes, exclusive of PA time and exclusive of procedures. The organ system at risk was neuro, cardiac and I gave IV fluids, supplemental dextrose, transfer the patient to the ICU to prevent worsening of the patients condition. - Data Points Laboratory Results: Laboratory Results 12/15/17 00:48 12/15/17 00:48 Medications Given: Aripiprazole (Abilify) 30 mg PO DAILY [facility] Stop: 06/13/18 11:29 Last Admin: 12/15/17 12:20 Dose: 30 mg Enoxaparin Sodium (Lovenox) 40 mg SC DAILY [facility] Stop: 06/13/18 08:59 Last Admin: 12/15/17 09:44 Dose: Not Given Insulin Human Lispro (Humalog Lispro) 0 unit SC TIDMEAL STAR PRN Reason: Protocol Stop: 06/13/18 21:59 Last Admin: 12/15/17 21:52 Dose: 5 unit Discontinued Medications Dextrose (Dextrose 50% Syringe) 12.5 gm IVP EDNOW ONE Stop: 12/15/17 01:44 Last Admin: 12/15/17 01:44 Dose: 12.5 gm Dextrose (Dextrose 50% Syringe) 12.5 gm IVP EDNOW ONE Stop: 12/15/17 02:07 Last Admin: 12/15/17 02:09 Dose: 12.5 gm Sodium Chloride (Ns) 1,000 mls @ 0 mls/hr IV EDNOW ONE; Wide Open PRN Reason: Protocol Stop: 12/15/17 00:28 Last Admin: 12/15/17 00:54 Dose: 1,000 mls Potassium Chloride/Dextrose/Sod Cl (D5w Ns W/ 20 Kcl/L) 1,000 mls @ 100 mls/hr IV CONT STAR Stop: 06/13/18 02:14 Last Admin: 12/15/17 02:35 Dose: 1,000 mls Point of Care Test Results: Chemistry 12/15/17 12/15/17 12/15/17 02:02 01:34 00:26 POC Glucose 71 mg/dL mg/dL 75 mg/dL mg/dL 456 mg/dL H mg/dL (70-100) (70-100) (70-100) Departure - Departure Disposition: [facility] Clinical Impression: Insulin overdose, Poisoning by insulin and oral hypoglycemic [antidiabetic] drugs, intentional self-harm, initial encounter, Schizophrenia, Hyperglycemia Condition: Critical
[2017-12-15 01:09] LABS: PLATELET COUNT 200 10^3/uL (150-400)
[2017-12-15] MEDS ORDERED: ONDANSETRON 4 MG/2 ML VIAL IVP PRN (01:48)
[2017-12-15] MEDS ORDERED: LORazepam 0.5 MG TAB PO PRN (01:48)
[2017-12-15] MEDS ORDERED: ACETAMINOPHEN 325 MG TAB PO PRN (01:48)
[2017-12-15] MEDS ORDERED: D50W 25 GM/50 ML VIAL IVP PRN (01:54)
[2017-12-15] MEDS ORDERED: D5W NS W/ 20 KCl/L 1,000 ML IV SCH (02:15)
--- NOTE | 2017-12-15 02:44 | PDGENHP ---
History and Physical - Chief Complaint insulin overdose - History of Present Illness Source-patient is able to provide history is fair historian. EMR was reviewed and case discussed with ED provider. HPI- pleasant 42-year-old gentleman with past medical history significant for schizophrenia, bipolar disorder, dm 1, HTN and a history of recurrent self harm with recent hospital stay for intentional urethral trauma after his auditory hallucinations instructed him to do so. Patient states that he was just read discharged from [facility] following this episode. Patient was standing at the bus stop with a friend. He states that his multiple auditory hallucinations were instructing him to harm himself by overdosing on insulin. Patient does report a history of overdose this way in the past. He denies any suicidal ideations and desires to receive appropriate mental health assistance. He states he was recently approved for [place] Medicaid and and just recently has been able to fill his medications were was previously. He has been taking his Abilify for the last several days on since his hospital stay. Patient reports that he injected approximately 700 units of Lantus and unknown amount of NovoLog. Patient denies any recent illnesses. He has not had any nausea or vomiting. He did drink 4 bottles of Mountain Dew shortly after administration of the insulin. EMS found that his blood sugar was greater than 500 and so was not treated. In the emergency department patient's blood sugars remained above 400 and blood sugars or monitored and declined after approximately an hour. Poison Control was notified. Patient at this time reports that he is absolutely full and unable to take in any additional oral intake. Blood sugars upon repeat are down into the 70s despite D50 bolus. Patient reports that he did become symptomatic with tremor and feeling unwell. History Information - Allergies/Home Medication List Allergies/Adverse Reactions: No Known Allergies Allergy (Verified 12/15/17 00:29) Home Medications: Abilify 12/08/17 [Last Taken Unknown] Lantus 12/08/17 [Last Taken Unknown] Lisinopril 12/08/17 [Last Taken Unknown] Pentasa 500 mg 12/08/17 [Last Taken Unknown] novoLOG 12/08/17 [Last Taken Unknown] I have personally reviewed and updated: family history, medical history, social history, surgical history - Past Medical History diabetes type 1, hypertension, psychiatric history (Schizophrenia and bipolar disorder) Additional medical history: Schizophrenia - Surgical History Additional surgical history: Abdominal hernia with chronic seroma - Family History Additional family history: Asked, denies. He is overall unsure of family history. - Social History Smoking Status: Heavy smoker Tobacco Use: Cigarettes (Two packs per day.) Alcohol Use: None Drug Use: Marijuana Additional social history: Homeless, just arrived from [place]. Patient is living on the streets. Cor-full. Review of Systems Review of Systems: ROS: 10pt was reviewed & negative except for what was stated in HPI & below Constitutional: Reports: other (Patient reports some tremors with decline in blood sugar otherwise reports that he was feeling well.). Denies: chills, fever EENMT: Reports: no symptoms Cardiac: Reports: no symptoms Respiratory: Reports: no symptoms Gastrointestinal: Reports: no symptoms Genitourinary: Reports: no symptoms Muscolosketal: Reports: no symptoms Skin: Reports: no symptoms Neurological: Reports: other (Auditory hallucinations) Physical Exam Physical Exam: Selected Entries 12/15/17 00:20 Blood Pressure Automatic Method Heart Rate 95 Respiratory 16 Rate O2 Sat (%) 96 Temperature (C) 36.8 C Blood Pressure 171/110 H Mean Arterial 130 H Pressure (MAP) O2 Delivery Room Air Mode Temperature Oral Source Temp Pulse Resp BP Pulse Ox 36.8 C 104 H 28 H 170/88 H 96 12/15/17 00:20 12/15/17 01:51 12/15/17 01:51 12/15/17 01:51 12/15/17 01:51 Constitutional: no apparent distress, appears nourished, other (NAD. Pleasant adult gentleman is sitting quietly on the gurney. He is awake.) Eyes: PERRL (Decreased reactivity bilaterally but symmetric.), anicteric sclera , EOMI, No scleral injection Ears, Nose, Mouth, Throat: moist mucous membranes, no oral mucosal ulcers, poor dentition, other (No nasal discharge) Cardiovascular: no murmur, rub, or gallop, pulses symmetric bilaterally, tachycardia (Regular rhythm), No edema Peripheral Pulses: 1+: dorsalis-pedis (R), dorsalis-pedis (L) Respiratory: no respiratory distress, no rales or rhonchi, clear to auscultation , No reduced air movement, No expiratory wheeze, No inspiratory crackles, No respiratory distress Gastrointestinal: normoactive bowel sounds, tenderness, other (Soft abdomen. Large healed midline abdominal scar. Right lower abdominal tender mobile mass. No fluctuance or induration. Obese abdomen.), No no palpable masses, No distension Genitourinary: no bladder tenderness, No cobb in urethra Skin: warm, normal color, no rashes or abrasions Musculoskeletal: full muscle strength, other (Patient sits up independently.), No generalized weakness Neurologic: AAOx3, other (Nonfocal exam.), No numbness, No facial droop Psychiatric: interacting appropriately, anxious, flat affect, poor judgement ( Patient can't appreciate that the voices are abnormal and he has no desire to harm himself currently.), No depressed Lab Data & Imaging Review 12/15/17 00:48 12/15/17 00:48 WBC 9.61 10^3/uL (3.80-9.50) H 12/15/17 00:48 RBC 5.00 10^6/uL (4.40-6.38) 12/15/17 00:48 Hgb 14.5 g/dL (13.7-17.5) 12/15/17 00:48 Hct 42.4 % (40.0-51.0) 12/15/17 00:48 MCV 84.8 fL (81.5-99.8) 12/15/17 00:48 MCH 29.0 pg (27.9-34.1) 12/15/17 00:48 MCHC 34.2 g/dL (32.4-36.7) 12/15/17 00:48 RDW 14.0 % (11.5-15.2) 12/15/17 00:48 Plt Count 200 10^3/uL (150-400) 12/15/17 00:48 MPV 12.0 fL (8.7-11.7) H 12/15/17 00:48 Neut % (Auto) 70.2 % (39.3-74.2) 12/15/17 00:48 Lymph % (Auto) 23.3 % (15.0-45.0) 12/15/17 00:48 Turner % (Auto) 3.9 % (4.5-13.0) L 12/15/17 00:48 Eos % (Auto) 1.8 % (0.6-7.6) 12/15/17 00:48 Baso % (Auto) 0.4 % (0.3-1.7) 12/15/17 00:48 Nucleat RBC Rel Count 0.0 % (0.0-0.2) 12/15/17 00:48 Absolute Neuts (auto) 6.75 10^3/uL (1.70-6.50) H 12/15/17 00:48 Absolute Lymphs (auto) 2.24 10^3/uL (1.00-3.00) 12/15/17 00:48 Absolute Monos (auto) 0.37 10^3/uL (0.30-0.80) 12/15/17 00:48 Absolute Eos (auto) 0.17 10^3/uL (0.03-0.40) 12/15/17 00:48 Absolute Basos (auto) 0.04 10^3/uL (0.02-0.10) 12/15/17 00:48 Absolute Nucleated RBC 0.00 10^3/uL (0-0.01) 12/15/17 00:48 Immature Gran % 0.4 % (0.0-1.1) 12/15/17 00:48 Immature Gran # 0.04 10^3/uL (0.00-0.10) 12/15/17 00:48 Sodium 136 mEq/L (135-145) 12/15/17 00:48 Potassium 3.6 mEq/L (3.3-5.0) 12/15/17 00:48 Chloride 102 mEq/L (97-110) 12/15/17 00:48 Carbon Dioxide 23 mEq/l (22-31) 12/15/17 00:48 Anion Gap 11 mEq/L (8-16) 12/15/17 00:48 BUN 12 mg/dL (7-23) 12/15/17 00:48 Creatinine 0.5 mg/dL (0.7-1.3) L 12/15/17 00:48 Estimated GFR > 60 12/15/17 00:48 Glucose 226 mg/dL (70-100) H 12/15/17 00:48 POC Glucose 71 mg/dL (70-100) 12/15/17 02:02 Calcium 10.2 mg/dL (8.5-10.4) 12/15/17 00:48 Salicylates < 1.0 mg/dL (2.0-20.0) L 12/15/17 00:48 Urine Opiates Screen NEGATIVE (NEGATIVE) 12/15/17 01:00 Acetaminophen < 10 mcg/mL (10-30) L 12/15/17 00:48 Urine Barbiturates NEGATIVE (NEGATIVE) 12/15/17 01:00 Ur Phencyclidine Scrn NEGATIVE (NEGATIVE) 12/15/17 01:00 Ur Amphetamine Screen NEGATIVE (NEGATIVE) 12/15/17 01:00 U Benzodiazepines Scrn NEGATIVE (NEGATIVE) 12/15/17 01:00 Urine Cocaine Screen NEGATIVE (NEGATIVE) 12/15/17 01:00 U Marijuana (THC) Screen NEGATIVE (NEGATIVE) 12/15/17 01:00 Ethyl Alcohol < 10 mg/dL (0-10) 12/15/17 00:48 EKG additional interpertation: equipment monitor phototypesetting showing sinus tachycardia. Patient did appear to be a little bit more anxious during the interview and heart rate did increase to the 120s. Vital sign checks reviewed with heart rates in the 1 100s. Assessment & Plan Assessment: 42-year-old gentleman with past medical history significant for schizophrenia, bipolar disorder, HTN, dm 1 who presents emergency department with acute insulin overdose. Insulin overdose (Acute) - currently patient denies any desire to commit suicide. He reports that he was hearing voices in the advised him to overdose on insulin. He states that currently now that he is administered insulin his voice is her currently gone. He reports that he recently was approved for [place] Medicaid and now can feel his Abilify and take it regularly. Patient was actually just discharged from [facility] today. Patient is currently on M1 hold. Will consult mental health in the morning. U tox is negative for any acute substances. Plan to resume patient's Abilify. He reports that he took this morning's dose. Patient with initial elevated blood sugar than 500. He has been trying to the orally supplement however currently is complaining that he is full. His blood sugars have finally declined into the 70s and despite dextrose boluses. Patient will require minimum q.1 hour Accu-Cheks and D5 half- normal with potassium has been added to his IV fluids. May need to consider administration of D 10 peripherally. Poisoning by insulin and oral hypoglycemic [antidiabetic] drugs, intentional self-harm, initial encounter (Acute) Schizophrenia (Acute on chronic) - patient reports that auditory hallucinations are currently going to the 80s administered the insulin. He reports that he has just recently been able to take his Abilify over the last several days since his hospitalization on a consistent basis. He also notes that now he has [place] Medicaid and he is desirous to fill his prescriptions and take his medications as prescribed. Patient is currently homeless and living on the streets. Social Work will be consulted. chronic medical issues #benign essential HTN - BPs mildly increased. Resume patient's lisinopril. Hydralazine p.r.n.. # DM I uncontrolled - plan for dextrose replacement as noted above. # Crohn's - no current complaints # central hernia with chronic seroma FEN - IV fluids with D5 half-normal saline +20 of KCl. As noted above may need to administer D10 drip in addition to boluses. Electrolyte monitoring replacement will be ordered. Will monitor patient's potassium closely with a.m. BMP. Regular diet as tolerated at this time with the hypoglycemia. PPX - SCDs. Lovenox if patient should stay additional day. Cor status-full. Disposition-patient initially admitted to observation status to unit but this has been changed after assessment due to now declining blood sugars and need for acute monitoring in the ICU. Anticipate greater than 2 midnight stay. Once stabilized patient will require evaluation and likely placement in a mental facility.
[2017-12-15] MEDS ORDERED: D10W 1,000 ML IV SCH (03:30)
[2017-12-15] MEDS: ENOXAPARIN 40 MG/0.4 ML SYR SC SCH (09:44)
--- NOTE | 2017-12-15 09:48 | PDMN ---
Medical Necessity Medical necessity: Change to IP, as of 12/15/17, per MD; los >2 mn for eval/tx of intentional insulin overdose; pt on M1 hold; admit for further monitoring, IVFs & Mental Health evaluation/placement; hx schizophrenia, bipolar disorder, homelessness; per H&P & order 12/15/17
--- NOTE | 2017-12-15 11:59 | ASMTCMCOM ---
CM Note CM Note Notes: Patient admitted after intentionally overdosing on insulin. He is known to us for a urethral injury last fall. Apparently, he discharged to the streets after that and returned home to [place] for the winter. He's been back in [place] for a month living a very unstable existence. He's currently on an M1 hold; EPS has been notified. On 12/08 patient presented to [facility] after sticking a twig in his urethra; this is very similar to his presentation last April. Because we didnt have any inpatient beds, he was sent to [facility]. Per patient, he was d/c'ed to [facility] for "like 12 hours" where they told him they couldn't help him. He did however, get [place] Medicaid a week ago. He hasn't seen a PCP or any provider to help him navigate getting his prescriptions, of which there are a few. He has been going to [place] to fish used bus tickets out of the trash and then he rides the bus all day with the used ticket and a transfer. We discussed the utter unsustainability of this, as well as using the ER as a cry for help. He says he is a [facility] client, and I informed him that [facility] now has a permanent senior care in [place]. Ideally, he would discharge directly from [facility] to [facility] on Monday when it is staffed with case management associate. I have also scheduled him at [facility] Monday 12/18 at 10:30AM, so he could also discharge directly there and then go to the [facility] senior care. Case Management will follow. Date Signed: 12/15/2017 11:58 AM Electronically Signed By:Mae Charles RN
[2017-12-15] MEDS: ARIPiprazole 10 MG TAB PO SCH (12:20)
--- NOTE | 2017-12-15 17:54 | HOSPPROG ---
Hospitalist Progress Note Assessment/Plan: Subjective Follow-up on hypoglycemia. Patient states he feels better today. There has been no tremor sense of hypoglycemia. We reviewed that his glucose readings have improved throughout the day. Case was reviewed with this nurse and we discussed decreasing the dose of dextrose infusion downward to follow closely. Patient states that he has a history of schizophrenia and states that he does reasonably well when he is on Abilify. However due to being homeless and not having regular medical care he has had difficulty in continuing with this medication. The voices that he hears when he is schizophrenia symptoms are uncontrolled typically tell him to harm himself. He has had episodes in the past of self-harm. I did review his case with TLC today and will plan on a consultation when medically ready which I anticipate to be tomorrow. Objective Vital signs as detailed below Exam General-patient appears comfortable he is awake alert conversant appropriate no acute distress Heart-regular no murmurs appreciated Lungs-clear auscultation with normal respiratory effort Abdomen-soft nontender nondistended -no Bernard catheter in place Extremities-no significant pitting edema Labs as detailed below Assessment and plan Insulin overdose-this was driven by voices telling him to harm himself due to uncontrolled schizophrenia. Continue with dextrose infusion. Will decrease the rate to 25 mL/hour. I recommend that we continue with hourly glucose checks through the evening time as he may become hypoglycemic again when he is not eating. Schizophrenia-apparently controlled when he is on Abilify. Abilify has been resumed today. His case has been reviewed with Psychiatry as well. Will anticipate consultation tomorrow when medically stable. Hypertension-controlled. Not currently on any antihypertensives. Diabetes mellitus type 1-uncertain control will check an A1c with morning labs. Crohn's disease-not currently active. DVT prophylaxis-Lovenox Disposition-patient is currently homeless. Once medically stable hopefully in the coming 1-2 days will be ready for discharge from the hospital. Objective: Vital Signs Temp Pulse Resp BP Pulse Ox 36.6 C 94 24 H 134/82 H 95 12/15/17 12:00 12/15/17 16:00 12/15/17 16:00 12/15/17 16:00 12/15/17 16:00 Laboratory Results 12/15/17 05:11 12/14/17 12/15/17 12/16/17 05:59 05:59 05:59 Intake Total 468 1373 Output Total 817 1025 Balance -382 -897 ICD10 Worksheet Patient Problems: Problems Problem Status Onset Hyperglycemia Acute Insulin overdose Acute Poisoning by insulin and oral hypoglycemic [antidiabetic] drugs, intentional self-harm, initial encounter Acute Schizophrenia Acute Borderline intellectual functioning Acute Malingering Acute
[2017-12-15] MEDS ORDERED: D50W 25 GM/50 ML SYR IVP PRN (21:22)
[2017-12-15] MEDS: INSULIN LISPRO 100 UNIT/ML SC SCH (21:52)
[2017-12-16] MEDS: ARIPiprazole 10 MG TAB PO SCH (07:55)
[2017-12-16] MEDS: ENOXAPARIN 40 MG/0.4 ML SYR SC SCH (07:56)
[2017-12-16] MEDS ORDERED: INSULIN GLARGINE 100 UNITS/ML UNIT SC ONE (10:30)
[2017-12-16] MEDS: INSULIN LISPRO 100 UNIT/ML SC SCH ×4 (11:12→21:01)
--- NOTE | 2017-12-16 12:52 | HOSPPROG ---
Hospitalist Progress Note Assessment/Plan: Subjective Follow-up on hyperglycemia. Patient states that he is starting to hear voices again instructing him to harm himself. His case was reviewed with his nurse today and she stated that he does not describe any voices telling him to harm himself or others. His case was reviewed with Dr. Dominguez today during ICU rounds and Lantus has been initiated as his glucose levels now persistently in the 300-400. Objective Vital signs as detailed below Exam General-patient appears comfortable he is awake alert conversant and appropriate with me Heart-regular rate and rhythm no murmurs noted Lungs-Clear to auscultation with normal respiratory effort Abdomen nondistended appearing -no Bernard catheter in place Extremities-no significant pitting edema Labs as detailed below Assessment and plan Insulin overdose-I suspect resolved at this point time. Dextrose infusion has been stopped. Glucose levels are stable in the 300 range in Lantus has been resumed at 35 units daily along with a sliding scale insulin. Schizophrenia-unstable currently still hearing voices instructing him to harm himself. I have reviewed his case with Psychiatry and they will consult for further recommendations. Hypertension-reported history of. Not currently on antihypertensive agents. Will continue to monitor closely. Diabetes mellitus type 1-A1c ordered to assess long-term control. Continue with current insulin regimen as detailed above. Crohn's disease-not currently active. DVT prophylaxis-Lovenox. Disposition-from medical standpoint I think he is stable to be discharged from the hospital. Will await further recommendations from Psychiatry. Objective: Vital Signs Temp Pulse Resp BP Pulse Ox 36.6 C 77 16 135/96 H 95 12/15/17 12:00 12/16/17 08:00 12/16/17 08:00 12/16/17 08:00 12/16/17 08:00 Laboratory Results 12/15/17 05:11 12/15/17 12/16/17 12/17/17 05:59 05:59 05:59 Intake Total 802 9539 Output Total 371 6716 Fwlovci -562 -1813 ICD10 Worksheet Patient Problems: Problems Problem Status Onset Hyperglycemia Acute Insulin overdose Acute Poisoning by insulin and oral hypoglycemic [antidiabetic] drugs, intentional self-harm, initial encounter Acute Schizophrenia Acute Borderline intellectual functioning Acute Malingering Acute
--- NOTE | 2017-12-16 16:36 | ASMTTLCEVL ---
TLC Evaluation - Basic Information Evaluation Start Date and 12/16/2017 03:30 PM Time Hospital Status Answers: M1 Hold 72-hr M1 Hold Start Date 12/15/2017 12:10 AM and Time Patient statement Notes: "The voices told me to hurt myself so I took all my insulin" Narrative Notes: This 42 y/o, , single, homeless male was brought to the ED on 12/15 following an overdose of insulin. He injected himself with 750 units of Novolog at 11:45PM. Pt was medically unstable and admitted to ICU. He was seen for a STAT TLC Consult this morning for lability, irritability and refusing to let the nurses test his glucose. He was given Abilify and became more cooperative - He became medically cleared and a CIS evaluation was completed and in-pt psych hospitalization has been recommended. Diagnosis History Notes: Pt is diagnosed with Schizoaffective Disorder, Bi-Polar Type 295.70 (F25.0). He has a long psychiatric history with multiple hospitalizations last may have been [facility] at the end of November. He was last on 3N in May 2017. Mos hospitalizations have been due to self harm. Prior suicide attempts Notes: CIS evaluation reports past attempts Prior hospitalizations Notes: Multiple hospitalizations. May have just been discharged from [facility]. Last on 3N in May of 2017 Treatment Responses Notes: Pt is generally non-compliant with discharge recommendations and with his psychiatric medications History of violence Notes: None reported Therapist: [facility] Psychiatrist: [facility] Medications (name, dosage, route, freq uency) Notes: Ariprazole - Abilify - 30 mg daily; Insulin Aspart - Novolog 15 units SC TID Meal; Insulin Glargine - Lantus 100 u/ml - 70 units SC HS; Lisinopril 20 mg daily; Mesalamine - Pentasa 2000 mg PO TID Meal; Cephalexin - Keflex 500 mg PO BID Allergies/Reaction Notes: None Reported Sleep Notes: Unknown Appetite Notes: Unknown Medical/Surgical history Notes: DiabetesMellitus1; history of hypertension; history of urethral scarring Substance use history (frequency, intensity, his tory, duration) Notes: Unknown Family composition Notes: Unknown Family psychiatric/substance abuse history Notes: Unknown Developmental history Notes: Unknown Marital status/children Notes: Single Sexual history/orientation Notes: Homeless Peer support/family strengths Notes: None Education level/history Notes: GED Work history Notes: Unemployed Notes: NA Legal Notes: Unknown Rastafarian/Spiritual Notes: Unknown Leisure Notes: Unknown Collateral Notes: CIS evaluation; Past records from 05/28 when pt was on 3N TLC Evaluation - Mental Status Exam Appearance: Answers: Disheveled Eye Contact: Answers: Absent Mood: Answers: Irritable Labile Affect: Answers: Agitated Labile Behavior: Answers: Cooperative Speech: Answers: Illogical Loud Thought Process: Answers: Disorganized Insight: Answers: Poor Judgement: Answers: Poor Manic Signs/Symptoms Answers: Irritability Hallucinations: Answers: Command Pt reported to have Answers: Yes suicidal/self-injuring ideation/behavior? Pt reported to be making Answers: Yes suicidal/self-injuring threats? Pt reported to have Answers: No aggression/assault ideation/behavior? Pt reported to be making Answers: No aggression/assault threats? Pt exhibits inability to Answers: Yes care for self/grave disability? Ideation/behavior is Answers: Yes chronic? Patient has a specific Answers: Yes plan? Pt has access to means to Answers: No execute the plan? Ideation involves Answers: Yes serious/lethal intent? Ideation has Answers: Yes delusional/hallucinatory content? History of Answers: Yes suicidal/self-injuring ideation, behavior, or threats? History of Answers: No aggressive/assaultive ideation, behavior, or threats? TLC Evaluation - Suicide/Homicide Risk Suicide Risk Factors: Answers: < 20 or > 40 Years of Age Agitation Command Hallucinations Inadequate Social Support Lack of Social Support Lack/Loss of Employment Single Homicide/violence risk Answers: Command Hallucinations factors: Current Suicidal Answers: No Ideation? Current Suicidal Ideation Answers: No in the Past 48 Hours? Current Suicidal Ideation Answers: No in the Past Month? Current Suicidal Answers: No Ideation, Worst Ever? Suicide Internal Answers: None Protective Factors: Suicide External Answers: None Protective Factors: Ranking of patient's Answers: Moderate suicidal risk: Ranking of patient's Answers: Low homicidal risk: TLC Evaluation - Wrap-up AXIS I Diagnosis (include DSM-V and ICD-10 codes), must also be entered in [employer], which is the source of truth. Notes: 295.70 (F25.0) Schizoaffective Disorder, Bi-Polar Type Evaluation End Date and 12/16/2017 04:40 PM Time (HH:MM): Date Signed: 12/16/2017 04:35 PM Electronically Signed By:Regina Vieira
[2017-12-16] MEDS: NICOTINE 21 MG/24 HR PATCH TD SCH (16:45)
--- NOTE | 2017-12-16 16:45 | ASMTTCLDSP ---
TLC Discharge Disposition Disposition: Answers: Admit Disposition Notes: Notes: In consultation with ICU MD and on-call psychiatrist, Dr.Wesley Coyle both concurred that pt meets the 27-65 criteria requiring in-pt psychiatric treatment as pt appears to be gravely disabled due to a mental illness conditon. Discharge Concerns/Recommendations: Notes: In-pt psychiatric hospitalization Was patient given the Answers: Not applicable Inpatient Behavioral Health Prohibited Belongings List while in the ED? For inpatient Cy Coyle MD admission, the following psychiatrist agreed to accept patient for admission to Behavioral Health ([facility]): Type of Hold: Answers: M1/72-hour Hold Hold initiated by: Answers: Police Date Signed: 12/16/2017 04:44 PM Electronically Signed By:Regina Vieira
[2017-12-16] MEDS: NICOTINE POLACRILEX 2 MG GUM B PRN ×2 (20:54→22:56)
[2017-12-16] MEDS ORDERED: INSULIN GLARGINE 100 UNITS/ML SYRINGE SC ONE (22:00)
[2017-12-17] MEDS: NICOTINE POLACRILEX 2 MG GUM B PRN ×5 (00:59→18:08)
[2017-12-17] MEDS: ARIPiprazole 10 MG TAB PO SCH (08:12)
[2017-12-17] MEDS: ENOXAPARIN 40 MG/0.4 ML SYR SC SCH (08:13)
[2017-12-17] MEDS: NICOTINE 21 MG/24 HR PATCH TD SCH (08:14)
[2017-12-17] MEDS: INSULIN LISPRO 100 UNIT/ML SC SCH ×3 (08:18→18:08)
[2017-12-17] MEDS: MESALAMINE PO SCH ×2 (11:47→18:08)
[2017-12-17 17:22] VITALS: BP 145/93
--- NOTE | 2017-12-17 17:38 | HOSPPROG ---
Hospitalist Progress Note Assessment/Plan: Subjective Follow-up on hyperglycemia. Patient states the voices are better today as compared to yesterday. He did ask about resuming Keflex. He was apparently been prescribed this recently after recent procedure related to trauma of the urethra. He had been on 500 mg twice a day instructed to continue this for 14 days of which she completed approximately 6-7 days worth. His case was reviewed with nursing as well and we discussed increasing the intensity of his sliding scale insulin. Objective Vital signs as detailed below Exam General-patient appears comfortable she is sitting in chair at the bedside appropriate no agitation Heart-regular rate and rhythm no murmurs noted Lungs-Clear to auscultation with normal respiratory effort Abdomen-nondistended appearing -no Bernard catheter in place Extremities no significant pitting edema Labs as detailed as below Assessment and Insulin overdose-resolved at this time. Dextrose infusion completed. Schizophrenia-better auditory hallucinations today. Continue with current medical management and await inpatient bed at [facility]. Hypertension-reported history of. Not currently on any antihypertensive agents. Blood pressures look reasonable continue to follow without any treatment at this time. Diabetes mellitus type 1-A1c pending to assess long-term control. Lantus insulin has been resumed. I have decreased the dose of this to 45 units nightly based upon today's readings. Crohn's disease-not currently active mesalamine has been ordered. DVT prophylaxis-Lovenox. Disposition-medically he is stable at this point time. Awaiting a placement for further psychiatric care. Objective: Vital Signs Temp Pulse Resp BP Pulse Ox 36.5 C 88 22 H 145/93 H 97 12/17/17 17:19 12/17/17 07:34 12/17/17 07:34 12/17/17 17:19 12/17/17 07:34 Laboratory Results 12/15/17 05:11 12/16/17 12/17/17 12/18/17 05:59 05:59 05:59 Intake Total 2068 3270 300 Output Total 9703 4017 750 Balance -2277 -400 -450 ICD10 Worksheet Patient Problems: Problems Problem Status Onset Hyperglycemia Acute Insulin overdose Acute Poisoning by insulin and oral hypoglycemic [antidiabetic] drugs, intentional self-harm, initial encounter Acute Schizophrenia Acute Borderline intellectual functioning Acute Malingering Acute
[2017-12-17] MEDS ORDERED: INSULIN GLARGINE 100 UNITS/ML UNIT SC SCH ×2 (21:00)
[2017-12-17] MEDS ORDERED: CEPHALEXIN 500 MG CAP PO SCH (21:00)
== END 2017-12-17 19:15 | DRG 812 ==
LOC: EDBD → EDUNIT# → OBSVTOIN 02:05 → F2N 02:40
PROVIDERS: ADMIT Family Medicine; ATTEND Family Medicine
DX: T38.3X2A Poisoning by insulin and oral hypoglycemic [antidiabetic] drugs, intentional self-harm, initial encounter (principal); E10.649 Type 1 diabetes mellitus with hypoglycemia without coma; F20.9 Schizophrenia, unspecified; F31.9 Bipolar disorder, unspecified; I10 Essential (primary) hypertension; K50.90 Crohn's disease, unspecified, without complications; F17.200 Nicotine dependence, unspecified, uncomplicated; Z91.5 Personal history of self-harm; Z59.0 Homelessness
CPT/HCPCS: 80305; 96374; G0480; J1650; J1815